=== PATIENT | female | born 2005 | race Caucasian/White ===

== ENCOUNTER 2023-08-23 00:36 | Emergency (ER) | payer SELFPAY ==
[~2023-08-23] VITALS: Ht 165.1 cm; Wt 68.0 kg
[2023-08-23 00:45] VITALS: BP 105/53; PULSE 88; RESP 20; TEMP 97.9; O2SAT 100
[2023-08-23] MEDS ORDERED: NACL 0.9% 2,000 ML IV ONE (01:40)
[2023-08-23 01:57] VITALS: O2SAT 100
[2023-08-23 04:29] VITALS: O2SAT 100
[2023-08-23 08:29] LABS: AMPHETAMINE, URINE NEGATIVE ng/ml (NEG <=1000); BARBITURATE, URINE NEGATIVE ng/ml (NEG <=200); BENZODIAZEPINE, URINE NEGATIVE ng/mL (NEG <=200); CANNABINOID, URINE POSITIVE ng/mL (NEG <=50); COCAINE, URINE NEGATIVE ng/mL (NEG <=300); OPIATE, URINE NEGATIVE ng/mL (NEG <=2000); PHENCYCLIDINE SCREEN,URINE NEGATIVE ng/mL (NEG <=25)
[2023-08-23 11:00] VITALS: BP 106/70; PULSE 79; RESP 20; TEMP 97.9; O2SAT 98
== END 2023-08-23 11:00 | disposition home or self-care (01) ==
LOC: MED 00:36
DX: F10.129 Alcohol abuse with intoxication, unspecified (principal); F15.90 Other stimulant use, unspecified, uncomplicated; F14.90 Cocaine use, unspecified, uncomplicated; R11.10 Vomiting, unspecified; Y90.8 Blood alcohol level of 240 mg/100 ml or more
CPT/HCPCS: 36415; 80305; 81025; 96360; 99285; G0482; J7030